=== PATIENT | female | born 1985 | race Asian ===

== ENCOUNTER → 2017-02-26 | Outpatient (CLI) | payer OTHER ==
--- NOTE | 2017-03-28 01:28 | ECWPNPC ---
PATIENT NAME: KAZ SAENZ : 1985 GENDER: FEMALE VISIT DATE: 02/26/2017 DISCHARGE DATE: 02/26/17 1231 VISIT LOCKED DATE TIME: PHYSICIAN: DAVI REDMAN RESOURCE: DAVI REDMAN HISTORY OF PRESENT ILLNESS HISTORY OF PRESENT ILLNESS: PAIN THE PATIENT DESCRIBES THE PAIN... FALL RISK SCREENING: SCREENING :NO FALLS IN THE PAST YEAR TODAY'S VISIT: NOTES: RATES PAIN TODAY 8/10. NOTES SHE IS HAVING PAIN AT THE SCAPULAS, MID BACK AND EVEN IN THE POSTERIOR THIGHS. IS SEEING DR IN [place] STATES SHE WAS GIVEN OXYCON 10 MG TWICE A DAY WHICH HELPED THE PAIN "A LITTLE BIT" BUT MADE HER RELAX, STATES SHE DID URINE TESTING BUT DOES NOT RECALL A NARCOTIC AGREEMENT.. CURRENT MEDICATIONS TAKING IBUPROFEN 600 MG TABLET 1 TABLET ORALLY THREE TIMES A DAY NEEDED TAKING XANAX 2 MG TABLET 1 TABLET ORALLY TWICE A DAY TAKING VOLTAREN 1 % GEL DIRECTED TRANSDERMAL 4 GM TO MID BACK Q 6 HRS NOT-TAKING TIZANIDINE HCL 2 MG TABLET 1 TABLET NEEDED ORALLY THREE TIMES A DAY NOT-TAKING SOMA 350 MG TABLET 1 TABLET NEEDED ORALLY BEFORE BEDTIME MDD=1 NOT-TAKING MELOXICAM 15 MG TABLET 1 TABLET ORALLY ONCE A DAY NOT-TAKING TRAMADOL HCL 50 MG TABLET 1 TABLET NEEDED ORALLY EVERY 6 HRS PRN PAIN MDD=3 UNKNOWN HYDROCODONE-ACETAMINOPHEN 5-325 MG TABLET 1 TABLET NEEDED FOR PAIN ORALLY EVERY DAY MDD1 MEDICATION LIST REVIEWED AND RECONCILED WITH THE PATIENT PAST MEDICAL HISTORY DEPRESSION ALLERGIES PENICILLIN (FOR ALLERGIES USE ONLY): RASH REVIEW OF SYSTEMS REVIEWED BY: PROVIDER: DAVI REDMAN POLICE SHIFT COMMANDER . CONSTITUTIONAL: ANY CHANGE IN YOUR MEDICAL CONDITION? NO . CHILLS NO . FEVER NO . INFECTION: DO YOU HAVE NEW INFECTIONS? NO . DO YOU HAVE HISTORY OF MRSA? NO . MUSCULOSKELETAL: ANY NEW PATTERNS OF PAIN OR NUMBNESS? NO . GASTROENTEROLOGY: ANY NEW CHANGE IN BOWEL CONTROL? NO . GENITOURINARY: ANY NEW CHANGE IN BLADDER CONTROL? NO . IS THERE A CHANCE YOU COULD BE ? NO . HEMATOLOGY/LYMPH: DO YOU TAKE ANY BLOOD THINNERS? (FOR EXAMPLE- COUMADIN, PLAVIX, AGGRENOX, PLATEL, PRADAXA, OR XARELTO) NO . WHEN WAS YOUR LAST DOSE? DATE: TIME: . NEUROLOGY: HAVE YOU FALLEN IN THE PAST 6 MONTHS? NO . ANY NEW EXTREMITY NUMBNESS OR WEAKNESS? NO . CARDIOLOGY: DO YOU HAVE A PACEMAKER OR DEFIBRILLATOR? NO . RESPIRATORY: HAVE YOU BEEN SICK IN THE PAST WEEK? NO . FEVER NO . FLU LIKE SYMPTOMS? NO . COUGH NO . INTEGUMENTARY: DO YOU HAVE ANY RASHES OR OPEN SORES? NO . ALLERGIC/IMMUNO: ARE YOU ALLERGIC TO SHELLFISH OR IV DYE? NO . ANY NEW ALLERGIES? NO . PSYCHIATRIC: DO YOU HAVE THOUGHTS OF HURTING YOURSELF OR SOMEONE ELSE? NO . ARE YOU ABUSED, NEGLECTED, OR IN AN UNSAFE ENVIRONMENT? NO . ENDOCRINOLOGY: ARE YOU DIABETIC? NO . OTHER: DO YOU NEED ANY PRESCRIPTIONS? NO . IF YES, PLEASE LIST: ____ . ANY NEW PROBLEMS WITH YOUR MEDICATIONS? NO . WHEN DID YOU LAST EAT? ____ . WHEN DID YOU LAST DRINK? ____ . WHAT DID YOU LAST DRINK? ____ . NAME OF PERSON DRIVING YOU HOME? ____ . DO YOU HAVE ANY OTHER QUESTIONS OR CONCERNS NO . VITAL SIGNS WT 212 LBS, HT 61 IN, BMI 40.05 INDEX, BP 106/60 MM HG, HR 73 /MIN, RR 18 /MIN, TEMP 98 F, OXYGEN SAT % 98, REVIEWED BY: NL. EXAMINATION GENERAL EXAMINATION: PSYCHALERT , ORIENTED X 3 , APPROPRIATE MOOD AND AFFECT . LUNGS:CLEAR TO AUSCULTATION BILATERALLY. HEART:HEART RATE REGULAR. MUSCULOSKELETAL:MUSCLE STRENGTH TESTING 5/5 BILATERAL UPPER AND LOWER EXTREMITIES. TENDER WITH PALPATION OVER MID THORACIC SPINOUS PROCESSES. TRIGGER POINTS IDENTIFIED IN THIS ARE OVER THE MID THORACIC PARAVERTEBRAL MUSCLES. MILD TENDERNESS WITH PALPATION OVER LUMBOSACRAL AXSIS. RISES EASILY TO STANDING POSITION. GAIT IS STIFF, ANTALGIC WITH POOR RANGE OF MOTION THROUGH THE HIPS AND SACRUM.. DIAGNOSTIC TESTS REVIEWEDMRI OF THORACIC SPINE COMPLETED 11/17/15 REVIEWED WITH PATIENT. . ASSESSMENTS THORACIC BACK PAIN - M54.6 (PRIMARY) MYALGIA - M79.1 TREATMENT THORACIC BACK PAIN START BACLOFEN TABLET, 10 MG, 1 TABLET WITH FOOD OR MILK, ORALLY, THREE TIMES A DAY, 30 DAY(S), 90, REFILLS 1 NOTES: [place] PROVIDER NESTOR WHEELER [facility], PHONE [phone], FAX- [phone]: [address] [place], [place] [id number]. PROCEDURE CODES [id number] ESTABILISHED PATIENT [facility] F[facility] CHARGE DISPOSITION & COMMUNICATION FOLLOW UP 1 MONTH (REASON: RHEA MADDY VALLEJO/ [facility] AND [facility] (I HAVE NUMBERS)) ELECTRONICALLY SIGNED BY NESTOR DRAKE ON 03/27/2017 AT 09:38 AM EDT DISCLAIMER : THIS IS A VISIT SUMMARY EXTRACTED FROM THE [employer] CHART. IT IS NOT A COPY OF THE [employer] PROGRESS NOTE. ANGELA
== END ==
LOC: M PAIN 11:30
PROVIDERS: ATTEND Nurse Practitioner Family
DX: M54.6 Pain in thoracic spine (principal); M79.1 Myalgia; Z79.899 Other long term (current) drug therapy; Z88.0 Allergy status to penicillin

== ENCOUNTER → 2017-03-22 | Outpatient (CLI) | payer OTHER | LOC: M PAIN 09:15 | PROVIDERS: ATTEND Nurse Practitioner Family | DX: M54.6 Pain in thoracic spine (principal); M79.1 Myalgia; Z79.899 Other long term (current) drug therapy; Z88.0 Allergy status to penicillin ==

== ENCOUNTER → 2017-05-24 | Outpatient (CLI) | payer OTHER ==
[~2017-05-24] MED LIST: LIDOCAINE 2% INJ 100 MG/5 ML SDV (FOR ANES.) As Ordered; MIDAZOLAM INJ 2 MG/2 ML VIAL (J2250) As Ordered; ONDANSETRON 4MG/2ML VIAL (J2405) As Ordered; PHENYLephrine HCL 500 MCG/5 ML (100MCG/ML) SYRINGE (J2370) As Ordered; PROPOFOL 200 MG/20 ML VIAL As Ordered; fentaNYL 100 MCG/2 ML INJECTION (J3010) As Ordered
== END ==
LOC: M PAIN 09:15
DX: M54.6 Pain in thoracic spine (principal); M79.1 Myalgia; Z79.891 Long term (current) use of opiate analgesic; Z79.899 Other long term (current) drug therapy; F32.9 Major depressive disorder, single episode, unspecified; Z88.0 Allergy status to penicillin
CPT/HCPCS: J2405

== ENCOUNTER → 2018-04-25 | Outpatient (CLI) | payer OTHER | LOC: M RAD 16:36 | DX: M54.42 Lumbago with sciatica, left side (principal); M54.6 Pain in thoracic spine | CPT/HCPCS: 72052 ==